=== PATIENT | female | born 1985 | race Caucasian/White ===

== ENCOUNTER 2021-05-31 05:50 | Observation (INO) | payer OTHER ==
[~2021-05-31] VITALS: Ht 170.2 cm; Wt 106.6 kg
[~2021-05-31 05:50] MED LIST: COLACE 100MG C100 MG PO
[2021-05-31 06:27] LABS: HEMOGLOBIN 13.8 gm/dl (12.3-15.3); RED BLOOD COUNT 4.58 M/UL (4.00-5.10); WHITE BLOOD COUNT 11.4 K/UL (4.5-11.0)
[2021-05-31] MEDS ORDERED: PRILOSEC10 M1 PO (06:29)
[2021-05-31] MEDS ORDERED: SUBOXONE 12 MG1 EACH SL (06:29)
[2021-05-31] MEDS ORDERED: NEURONTIN300 MG PO (06:30)
[2021-05-31] MEDS ORDERED: NEXIUM2.5 MG PO (06:31)
[2021-05-31] MEDS ORDERED: VORT5TAB PO (06:37)
[2021-05-31 07:07] LABS: BUN/CREATININE RATIO 17 (0-10)
[2021-05-31] MEDS ORDERED: PERCOCET 10-321 EACH PO (10:17)
[2021-05-31] MEDS ORDERED: COLACE 100MG C100 MG PO (10:17)
[2021-05-31] MEDS ORDERED: IBUPROFEN600 MG PO (10:17)
== END 2021-06-01 13:12 | disposition home or self-care (01) ==
LOC: OR 05:50 → MED SURG 4 11:23
PROVIDERS: ADMIT Obstetrics & Gynecology
DX: N72 Inflammatory disease of cervix uteri (principal); N80.0 Endometriosis of uterus; N83.201 Unspecified ovarian cyst, right side; Z20.822 Contact with and (suspected) exposure to COVID-19; I10 Essential (primary) hypertension; K21.9 Gastro-esophageal reflux disease without esophagitis; J45.909 Unspecified asthma, uncomplicated; E66.01 Morbid (severe) obesity due to excess calories; F17.210 Nicotine dependence, cigarettes, uncomplicated; N91.5 Oligomenorrhea, unspecified; N94.10 Unspecified dyspareunia; N94.6 Dysmenorrhea, unspecified; N92.1 Excessive and frequent menstruation with irregular cycle; Z98.51 Tubal ligation status; Z79.899 Other long term (current) drug therapy; Z68.35 Body mass index [BMI] 35.0-35.9, adult
CPT/HCPCS: 80053; 81001; 85025; 96375; G0378; J0690; J1100; J1170; J1885; J2001; J2250; J2270; J2405; J2704; J2710; J2795; J3010; U0002